=== PATIENT | female | born 1975 | race Caucasian/White ===

== ENCOUNTER 2017-02-03 08:53 | Inpatient (IN) | payer OTHER ==
[2017-02-03] VITALS (8 sets, daily range): BP systolic 99–114; BP diastolic 54–71
[~2017-02-03] VITALS: Ht 172.7 cm; Wt 99.0 kg
[~2017-02-03 08:53] MED LIST: PRENATAL FORMU1 EAC5 PO
[2017-02-03 09:21] LABS: EOSINOPHIL (%) 1.2 % (0-5); EOSINOPHIL COUNT 0.1 K/uL (0-0.3); HEMATOCRIT 38.9 % (36.0-46.0); IMMATURE GRANULOCYTE (%) 0.7 % (0.0-0.7); IMMATURE GRANULOCYTE COUNT 0.1 K/uL; INSTRUMENT ABS NEUTROPHIL CT 7.2 K/uL; LYMPHOCYTE COUNT 1.6 K/uL (1.0-2.8); MCH 27.3 PG (29.0-34.0); MCHC 31.9 G/DL (30.0-36.0); MCV 85.7 FL (83-99); MEAN PLAT.VOLUME 11.3 uM^3 (9.5-12.4); MONOCYTE COUNT 0.7 K/uL (0-0.8); NEUTROPHIL (%) 74.7 % (45-76); NEUTROPHIL COUNT 7.2 K/uL (1.8-6.4); PLATELET COUNT 214 K/uL (156-360); RBC DIS.WIDTH-CV 13.9 % (11.8-14.6); RBC DIS.WIDTH-SD 43.8 % (39-53); RED BLOOD COUNT 4.54 M/uL (3.80-5.20); WHITE BLOOD COUNT 9.6 K/uL (4.1-10.2)
[2017-02-04 03:30] VITALS: BP 115/57
[2017-02-04 05:16] LABS: EOSINOPHIL COUNT 0.1 K/uL (0-0.3); HEMATOCRIT 28.1 % (36.0-46.0); IMMATURE GRANULOCYTE (%) 0.7 % (0.0-0.7); IMMATURE GRANULOCYTE COUNT 0.1 K/uL; INSTRUMENT ABS NEUTROPHIL CT 7.4 K/uL; LYMPHOCYTE COUNT 1.4 K/uL (1.0-2.8); MCH 27.6 PG (29.0-34.0); MCHC 31.7 G/DL (30.0-36.0); MCV 87.3 FL (83-99); MEAN PLAT.VOLUME 11.3 uM^3 (9.5-12.4); MONOCYTE COUNT 0.7 K/uL (0-0.8); NEUTROPHIL (%) 76.6 % (45-76); NEUTROPHIL COUNT 7.4 K/uL (1.8-6.4); PLATELET COUNT 158 K/uL (156-360); RBC DIS.WIDTH-CV 13.9 % (11.8-14.6); RBC DIS.WIDTH-SD 44.6 % (39-53); RED BLOOD COUNT 3.22 M/uL (3.80-5.20); WHITE BLOOD COUNT 9.7 K/uL (4.1-10.2)
[2017-02-04 07:25] VITALS: BP 99/52
[2017-02-04 11:55] VITALS: BP 99/59
[2017-02-04 15:03] VITALS: BP 124/57
[2017-02-04 19:00] VITALS: BP 113/61
[2017-02-04 23:00] VITALS: BP 117/71
[2017-02-05 03:00] VITALS: BP 113/63
[2017-02-05 07:59] VITALS: BP 112/57
[2017-02-05] MEDS ORDERED: IBUPROFEN800 MG PO (09:10)
[2017-02-05] MEDS ORDERED: ENDOCET 5-3251 EACH PO (09:10)
[2017-02-05] MEDS ORDERED: FERROUS SULFAT325 MG PO (09:10)
[2017-02-05 10:25] VITALS: BP 106/62
== END 2017-02-05 16:37 | disposition home or self-care (01) | DRG 766 ==
LOC: 2WEST 08:53 → 2SOUTH 10:07 → 2WEST 02-05 16:37
PROVIDERS: Obstetrics & Gynecology
DX: O34.211 Maternal care for low transverse scar from previous cesarean delivery (principal); O99.214 Obesity complicating childbirth; E66.9 Obesity, unspecified; Z30.2 Encounter for sterilization; Z3A.38 38 weeks gestation of pregnancy; Z37.0 Single live birth; Z68.31 Body mass index [BMI] 31.0-31.9, adult
CPT/HCPCS: 85025; 86850; 86900; 86901; 88302; J0690; J1200; J1885; J2270; J2274; J2405; J7120